=== PATIENT | female | born 1970 | race Caucasian/White ===

== ENCOUNTER 2017-05-20 15:35 | Inpatient (IN) | payer BC ==
[2017-05-20] MEDS ORDERED: NS 1,000 ML IV ONE (17:57)
[2017-05-20] MEDS ORDERED: PANTOPRAZOLE SODIUM 40 MG in NS 100 ML IV ONE (17:57)
--- NOTE | 2017-05-20 17:58 | EDPHY ---
H & P Time Seen by Provider: 05/20/17 17:27 HPI/ROS: CHIEF COMPLAINT: Abdominal pain HISTORY OF PRESENT ILLNESS: This 46-year-old woman has a history of chronic pancreatitis with previous abdominal surgeries. She presents today with 3 months of low level abdominal pain worse for last week and then definitely worse for the last 2 days. Pain is located in her epigastrium and radiates to her back. It is worse at night and is about a 3/10 with water and a 5/10 with Gatorade and a 7/10 with broth over the last 2 days. So no oral intake today at all. Of note she had a history of a single black stool that was 2 months ago. She has a little bit of urinary frequency but no dysuria or hematuria. She has lost weight since 2013 about 10 oz. She did have a glucose that was high 4 days ago but she thinks it was due a incorrect battery in her glucometer REVIEW OF SYSTEMS: Eye: no change in vision ENT: no sore throat Cardiac: no chest pain or syncope Pulmonary: no cough or SOB Abdomen: HPI, no diarrhea Musculoskeletal: no back pain Skin: no rash Neuro: no headache Constitutional: [place] hot today but documented fever. : HPI A comprehensive 10 point review of systems is otherwise negative aside from elements mentioned in the history of present illness. PAST MEDICAL HISTORY: Includes chronic pancreatitis with cholecystectomy and multiple abdominal surgeries including hepatic jejunostomy and can of the pancreatic duct to her small intestine Social history: Nonsmoker. No alcohol for the past 7 years General Appearance: Alert and conversant, cooperative. Eyes: No scleral icterus. ENT, Mouth: Dry oral mucous membranes. Respiratory: Normal respiratory effort, breath sounds equal, lungs are clear to auscultation. Cardiovascular: Regular rate and rhythm. Gastrointestinal: Mild epigastric and right upper quadrant tenderness without rebound or guarding. Neurological: Alert and oriented x3. Normally conversant. Face symmetric, normal movement and sensation in all extremities. Skin: Warm and dry, no rashes. Musculoskeletal: No peripheral edema and no joint swelling. Psychiatric: Not agitated. Emergency Department course/MDM: Normal saline hydration 2 L. admission to hospitalist service with GI consult. Protonix 40 mg IV. Esme 1821, will consult. Clinically unlikely to have acute emergent surgical condition in the emergency department, or infection such as cholangitis. May need further imaging. Smoking Status: Former smoker Constitutional: Initial Vital Signs Temperature (C) 37.2 C 05/20/17 15:47 Heart Rate 86 05/20/17 15:47 Respiratory Rate 18 05/20/17 15:47 Blood Pressure 129/86 H 05/20/17 15:47 O2 Sat (%) 98 05/20/17 15:47 O2 Delivery Mode Room Air Allergies/Adverse Reactions: bupropion HCl [From Wellbutrin] Allergy (Verified 01/10/16 16:48) Home Medications: Medication Instructions Recorded Lipase/Protease/Amylase [Creon 24 1 - 3 cap PO TIDMEAL 12/23/15 (*)] Ketamine 3 sprays EACHNARE HS PRN 05/20/17 ALPRAZOLAM [ALPRAZOLAM] 0.5 mg PO HS PRN 05/20/17 Dextroamphetamine/Amphetamine 20 mg PO BID 05/20/17 [Adderall 20 mg Tablet] Omeprazole [Prilosec 20 mg] 20 mg PO BID 05/20/17 Medical Decision Making Differential Diagnosis: Differential considered including but not limited to common duct stone, pancreatitis, bowel obstruction, ulcer disease or reflux. Consult/Admit Bed Type: [place] [id number] - Data Points Laboratory Results: Laboratory Results 05/20/17 17:25 05/20/17 17:25 05/20/17 05/20/17 05/20/17 17:25 17:25 17:25 WBC 5.11 10^3/uL 10^3/uL (3.80-9.50) RBC 4.29 10^6/uL 10^6/uL (4.18-5.33) Hgb 12.8 g/dL g/dL (12.6-16.3) Hct 38.9 % % (38.0-47.0) MCV 90.7 fL fL (81.5-99.8) MCH 29.8 pg pg (27.9-34.1) MCHC 32.9 g/dL g/dL (32.4-36.7) RDW 12.3 % % (11.5-15.2) Plt Count 357 10^3/uL 10^3/uL (150-400) MPV 9.8 fL fL (8.7-11.7) Neut % (Auto) 57.1 % % (39.3-74.2) Lymph % (Auto) 27.2 % % (15.0-45.0) [place] % (Auto) 8.6 % % (4.5-13.0) Eos % (Auto) 5.9 % % (0.6-7.6) Baso % (Auto) 1.0 % % (0.3-1.7) Nucleat RBC Rel Count 0.0 % % (0.0-0.2) Absolute Neuts (auto) 2.92 10^3/uL 10^3/uL (1.70-6.50) Absolute Lymphs (auto) 1.39 10^3/uL 10^3/uL (1.00-3.00) Absolute Monos (auto) 0.44 10^3/uL 10^3/uL (0.30-0.80) Absolute Eos (auto) 0.30 10^3/uL 10^3/uL (0.03-0.40) Absolute Basos (auto) 0.05 10^3/uL 10^3/uL (0.02-0.10) Absolute Nucleated RBC 0.00 10^3/uL 10^3/uL (0-0.01) Immature Gran % 0.2 % % (0.0-1.1) Immature Gran # 0.01 10^3/uL 10^3/uL (0.00-0.10) Sodium 139 mEq/L mEq/L (134-144) Potassium 3.6 mEq/L mEq/L (3.5-5.2) Chloride 97 mEq/L mEq/L (97-110) Carbon Dioxide 26 mEq/l mEq/l (22-31) Anion Gap 16 mEq/L mEq/L (8-16) BUN 9 mg/dL mg/dL (7-23) Creatinine 0.7 mg/dL mg/dL (0.6-1.0) Estimated GFR > 60 Glucose 96 mg/dL mg/dL (70-100) Calcium 9.8 mg/dL mg/dL (8.5-10.4) Total Bilirubin 1.2 mg/dL mg/dL (0.1-1.4) Conjugated Bilirubin 0.4 mg/dL mg/dL (0.0-0.5) Unconjugated Bilirubin 0.8 mg/dL mg/dL (0.0-1.1) AST 179 IU/L H IU/L (14-46) ALT 353 IU/L H IU/L (9-52) Alkaline Phosphatase 171 IU/L H IU/L (38-126) Total Protein 7.7 g/dL g/dL (6.3-8.2) Albumin 4.7 g/dL g/dL (3.5-5.0) Lipase 13 IU/L L IU/L (23-300) Beta HCG, Qual NEGATIVE Medications Given: Alprazolam (Xanax) 0.5 mg PO HS PRN PRN Reason: Anxiety Stop: 11/16/17 20:05 Last Admin: 05/20/17 20:43 Dose: 0.5 mg Hydromorphone HCl (Dilaudid) 0.2 - 0.4 mg IVP Q4HRS PRN PRN Reason: Pain, Severe Unable to Take PO Stop: 05/30/17 19:09 Last Admin: 05/20/17 20:40 Dose: 0.4 mg Dextrose/Sodium Chloride (D5w 1/2 Ns) 1,000 mls @ 125 mls/hr IV CONT TRUNG Stop: 11/16/17 19:14 Last Admin: 05/20/17 19:59 Dose: 1,000 mls Pantoprazole Sodium (Protonix) 40 mg PO BID TRUNG Stop: 11/16/17 20:59 Last Admin: 05/20/17 20:43 Dose: 40 mg Discontinued Medications Sodium Chloride (Ns) 1,000 mls @ 0 mls/hr IV EDNOW ONE; Wide Open PRN Reason: Protocol Stop: 05/20/17 17:58 Last Admin: 05/20/17 18:34 Dose: 1,000 mls Pantoprazole Sodium 40 mg/ (Sodium Chloride) 100 mls @ 200 mls/hr IV EDNOW ONE Stop: 05/20/17 18:26 Last Admin: 05/20/17 18:34 Dose: 100 mls Departure - Departure Disposition: [facility] Inpatient Acute Clinical Impression: Abdominal pain Condition: Good
[2017-05-20 18:06] LABS: % IMMATURE GRANULYOCYTES 0.2 % (0.0-1.1); ABSOLUTE IMMATURE GRANULOCYTES 0.01 10^3/uL (0.00-0.10); ADD DIFF? NO; ADD MORPH? NO; ADD SCAN? NO; ATYPICAL LYMPHOCYTE FLAG 20 (0-99); FRAGMENT RBC FLAG 0 (0-99); HEMATOCRIT 38.9 % (38.0-47.0); HEMOGLOBIN 12.8 g/dL (12.6-16.3); LEFT SHIFT FLG 0 (0-99); LIPEMIA HEMOLYSIS FLAG 80 (0-99); MEAN CELL HEMOGLOBIN 29.8 pg (27.9-34.1); MEAN CELL HEMOGLOBIN CONCENTR. 32.9 g/dL (32.4-36.7); MEAN CELL VOLUME 90.7 fL (81.5-99.8); MEAN PLATELET VOLUME 9.8 fL (8.7-11.7); PLATELET CLUMPS FLAG 10 (0-99); PLATELET COUNT 357 10^3/uL (150-400); RED BLOOD CELL COUNT 4.29 10^6/uL (4.18-5.33); RED CELL DISTRIBUTION WIDTH 12.3 % (11.5-15.2)
[2017-05-20 18:10] LABS: ALANINE AMINOTRANSFERASE 353 IU/L (9-52); ALBUMIN 4.7 g/dL (3.5-5.0); ALKALINE PHOSPHATASE 171 IU/L (38-126); ANION GAP 16 mEq/L (8-16); ASPARTATE AMINOTRANSFERASE 179 IU/L (14-46); BILIRUBIN,TOTAL 1.2 mg/dL (0.1-1.4); BILIRUBIN-CONJUGATED 0.4 mg/dL (0.0-0.5); BILIRUBIN-UNCONJUGATED 0.8 mg/dL (0.0-1.1); CALCIUM 9.8 mg/dL (8.5-10.4); CARBON DIOXIDE 26 mEq/l (22-31); CHLORIDE 97 mEq/L (97-110); CREATININE 0.7 mg/dL (0.6-1.0); GLOMERULAR FILTRATION RATE > 60; GLUCOSE 96 mg/dL (70-100); POTASSIUM 3.6 mEq/L (3.5-5.2); SODIUM 139 mEq/L (134-144); TOTAL PROTEIN 7.7 g/dL (6.3-8.2)
[2017-05-20] MEDS ORDERED: ACETAMINOPHEN 325 MG TAB PO PRN (19:10)
[2017-05-20] MEDS ORDERED: ONDANSETRON DISINTEGRATING 4 MG TAB PO PRN (19:10)
[2017-05-20] MEDS ORDERED: PROMETHAZINE HCL 25 MG/ML INJ IVP PRN (19:10)
--- NOTE | 2017-05-20 19:53 | GHP ---
[f rep st] HISTORY AND PHYSICAL DATE OF ADMISSION: 05/20/2017 HISTORY OF PRESENT ILLNESS: The patient is a pleasant 46-year-old female, history of chronic pancre atitis with a complex history. It sounds like she has had pancreatitis systems or biliary obstructi on, and she had initially a surgical procedure in [facility] to attach the pancreatic duct into the duodenum, followed by a hepatojejunostomy. She had multiple admissions a number of years ago for r ecurrent pancreatitis that is not felt to be alcohol induced. She has done well from a chronic pain standpoint in the sense that she has weaned herself off of chronic narcotics. She takes occasional ly nasal ketamine and meditation for management of her pain. Over the last couple of weeks, she not es that her pain has gotten worse, especially postprandial. It has gotten even worse in the last co uple of days to the point where she is having a hard time drinking water. It is worse at night. It radiates to her back. She is having some nausea, but no vomiting. No melena. No bright red blood per rectum. She did have an episode of melena 2 months ago that resolved. She has lost a little b it of weight. The patient had an episode of what sounds like steatorrhea earlier this week. REVIEW OF SYSTEMS: Complete 10-point review of systems conducted, negative except as noted in the H PI. PAST MEDICAL HISTORY: Chronic pancreatitis. She also has an apparent history of diabetes as result of her chronic pancreatitis. ALLERGIES: Bupropion. MEDICATIONS: Ketamine nasal spray, [id number], and Xanax. SOCIAL HISTORY: She used to vapor tobacco, but has quit that. No alcohol. Recently in . FAMILY HISTORY: Notable for brother with an episode of pancreatitis and has celiac disease. PHYSICAL EXAM: VITAL SIGNS: Temp 37.2, blood pressure 129/86, pulse 86, breathing 18 times a minut e, 98% on room air. GENERAL: No acute distress, thin. HEENT: Sclerae anicteric. Oropharynx jasiel r. Mucous membranes moist. NECK: Supple without lymphadenopathy or JVD. LUNGS: Clear to auscult ation bilaterally. HEART: S1, S2. ABDOMEN: Soft, nontender, nondistended. LOWER EXTREMITIES: W ithout edema. Calves nontender. SKIN: Without rash. NEUROLOGIC: Exam is nonfocal. LABS: White count 5, hematocrit 38, platelets are , sodium 139, potassium 3.6, chloride 9 7, bicarb 26, BUN 9, creatinine 0.7, bilirubin is 1.2. In the past she has been 0.8. AST is 179, A LT 253, alkaline phosphatase is 171, these are all greater than her baseline. Lipase is 13. Beta H CG is pending. I have discussed the case Dr. Christian Chadwick. ASSESSMENT/PLAN: This is a 46-year-old female with a complex past medical history, here with what a ppears to be pancreatitis. 1. Pancreatitis. I suspect the patient has obstruction of her surgical anatomy given her obstructi ve LFTs. She is loathe to get another CAT scan. So, I have ordered an ultrasound at this point in time. It may be followed by MRCP. GI will see her. I will maintain her n.p.o. IV fluids, IV pain medications, and IV antiemetics. 2. Diabetes. The patient has a normal blood sugar, is not on any medications. We will follow. 3. Episode of melena. She is not anemic nor microcytic here. We will follow. 4. Prophylaxis. Pharmacologic prophylaxis indicated, we will start. DISPOSITION: Inpatient status. /[id number]/MODL
[2017-05-20] MEDS: D5W 1/2 NS 1,000 ML IV SCH (19:59)
[2017-05-20] MEDS ORDERED: ALPRAZolam 0.25 MG TAB PO PRN (20:06)
[2017-05-20] MEDS: HYDROmorphONE/DILAUDID 1 MG/ML INJ IVP PRN (20:40)
[2017-05-20] MEDS: PANTOPRAZOLE SODIUM 40 MG TAB PO SCH (20:43)
[2017-05-21] MEDS ORDERED: HYDROmorphONE/DILAUDID 2 MG TAB PO PRN (05:39)
[2017-05-21 05:42] LABS: % IMMATURE GRANULYOCYTES 0.4 % (0.0-1.1); ABSOLUTE IMMATURE GRANULOCYTES 0.02 10^3/uL (0.00-0.10); ADD DIFF? NO; ADD MORPH? NO; ADD SCAN? NO; ATYPICAL LYMPHOCYTE FLAG 20 (0-99); FRAGMENT RBC FLAG 0 (0-99); HEMATOCRIT 34.5 % (38.0-47.0); HEMOGLOBIN 11.1 g/dL (12.6-16.3); LEFT SHIFT FLG 0 (0-99); LIPEMIA HEMOLYSIS FLAG 80 (0-99); MEAN CELL HEMOGLOBIN 29.6 pg (27.9-34.1); MEAN CELL HEMOGLOBIN CONCENTR. 32.2 g/dL (32.4-36.7); MEAN PLATELET VOLUME 9.5 fL (8.7-11.7); PLATELET CLUMPS FLAG 10 (0-99); PLATELET COUNT 289 10^3/uL (150-400); RED BLOOD CELL COUNT 3.75 10^6/uL (4.18-5.33); RED CELL DISTRIBUTION WIDTH 12.3 % (11.5-15.2)
[2017-05-21 05:46] LABS: INR 1.18 (0.83-1.16)
[2017-05-21 05:47] LABS: APTT 28.2 SEC (23.0-38.0)
[2017-05-21 05:58] LABS: ALANINE AMINOTRANSFERASE 213 IU/L (9-52); ALBUMIN 3.3 g/dL (3.5-5.0); ALKALINE PHOSPHATASE 112 IU/L (38-126); ANION GAP 8 mEq/L (8-16); ASPARTATE AMINOTRANSFERASE 77 IU/L (14-46); BILIRUBIN,TOTAL 0.7 mg/dL (0.1-1.4); CALCIUM 8.8 mg/dL (8.5-10.4); CARBON DIOXIDE 26 mEq/l (22-31); CHLORIDE 102 mEq/L (97-110); CREATININE 0.6 mg/dL (0.6-1.0); GLOMERULAR FILTRATION RATE > 60; GLUCOSE 129 mg/dL (70-100); POTASSIUM 4.1 mEq/L (3.5-5.2); SODIUM 136 mEq/L (134-144); TOTAL PROTEIN 5.9 g/dL (6.3-8.2)
[2017-05-21] MEDS ORDERED: HYDROmorphONE/DILAUDID 1 MG/ML INJ IVP ONE (06:30)
[2017-05-21] MEDS: ALPRAZolam 0.25 MG TAB PO PRN ×2 (07:15→15:18)
[2017-05-21] MEDS: HYDROmorphONE/DILAUDID 1 MG/ML INJ IVP PRN (08:29)
[2017-05-21] MEDS: ENOXAPARIN 40 MG/0.4 ML SYR SC SCH (08:32)
[2017-05-21] MEDS: PANTOPRAZOLE SODIUM 40 MG TAB PO SCH ×2 (08:32→20:18)
[2017-05-21] MEDS: ADDERALL 20 MG TAB PO SCH ×2 (08:34→14:55)
[2017-05-21] MEDS: CREON 24 CAP PO SCH ×3 (08:35→19:08)
--- NOTE | 2017-05-21 10:24 | HOSPPROG ---
Hospitalist Progress Note Assessment/Plan: Patient is a 46-year-old female with a history of chronic pancreatitis. She has had a procedure to her pancreatic duct. Over the last few weeks her pain has gotten worse. Today is my 1st encounter with the patient. Chart reviewed. 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 Continue treatment with IV hydration and Dilaudid TRANSCRIBING MACHINE OPERATOR will await further input from Gastroenterology. Appreciate their involvement Subjective: the patient is tearful and says the pain is severe Objective: Vital Signs Temp Pulse Resp BP Pulse Ox 36.7 C 66 14 88/62 L 93 05/21/17 07:50 05/21/17 07:50 05/21/17 07:50 05/21/17 07:50 05/21/17 07:50 Laboratory Results 05/21/17 05:29 05/21/17 05:29 05/20/17 05/21/17 05/22/17 05:59 05:59 05:59 Intake Total 2375 Balance 2375 PT 15.0 SEC (12.0-15.0) 05/21/17 05:29 INR 1.18 (0.83-1.16) H 05/21/17 05:29 - Physical Exam Constitutional: other ( thin) Eyes: PERRL Ears, Nose, Mouth, Throat: hearing normal Cardiovascular: regular rate and rhythym Respiratory: no respiratory distress Gastrointestinal: normoactive bowel sounds, tenderness ( in the right upper quadrant and epigastric area) Skin: warm Musculoskeletal: full muscle strength, no muscle tenderness, no joint effusions Psychiatric: interacting appropriately, anxious ICD10 Worksheet Patient Problems: Problems Problem Status Onset Abdominal pain Acute Abdominal pain Active Pancreatitis Active Bipolar 1 disorder Acute
[2017-05-21] MEDS ORDERED: NALOXONE HCL 0.4 MG/ML INJ IVP PRN (10:30)
[2017-05-21] MEDS: HYDROmorphONE/DILAUDID 6 MG/30 ML PCA IV PRN ×2 (10:54→22:39)
--- NOTE | 2017-05-21 11:41 | GCON ---
[f rep st] CONSULTATION GASTROENTEROLOGY CONSULTATION REFERRING PHYSICIAN: Jerman Mendez MD REASON FOR CONSULTATION: Abdominal pain. CHIEF COMPLAINT: Abdominal pain. HISTORY OF PRESENT ILLNESS: Briefly, the patient is a pleasant 46-year-old female with a complicated pancreatobiliary history. Approximately 5 years ago, she underwent multiple abdominal surgeries to resolve complications of acute pancreatitis. She has ultimately had to undergo hepaticojejunostomy. She believes that she has had multiple admissions over the years for recurrent pancreatitis. She mckinley d been doing well since approximately 2012. She began having increasing abdominal pain over the last 3 months. This was intermittent, with periods of time without pain, and then over the last 1 week, she reports gradually worsening daily pain. Pains are clearly made worse with eating, even small juan unts of liquids. Given the worsening symptoms, more consistent nature of the symptoms, she presented to the emergency room for evaluation. She reports no fevers chills or sweats. She has had no jaund ice. She reports no nausea or vomiting. She has not had any episodes of hematemesis or hematochezia . She reports her bowel movements remain normal. Her weight has been somewhat irregular. Her typic al weight is close to 100 pounds. She reports that she was down to approximately 85 pounds earlier t his year, she began eating a higher calorie diet, and has increased her weight back up to 100 pounds, but over the last 4-6 weeks, she believes she has lost approximately 5-10 pounds, and is currently w eighing closer to 90 pounds. ALLERGIES: Bupropion. MEDICATIONS: Outpatient medicines include ketamine nasal spray, pancreatic enzyme replacement, and X anax. PAST MEDICAL HISTORY: Includes chronic pancreatitis with mild diabetes as a consequence. PAST SURGICAL HISTORY: Includes multiple complicated pancreaticobiliary surgeries. FAMILY HISTORY: Notable for a brother who has had an episode of pancreatitis and a brother who has c eliac disease. REVIEW OF SYSTEMS: A complete 10-point review was undertaken with the patient and is negative, excep t for the pertinent positives and negatives detailed in the history of present illness. PHYSICAL EXAM: GENERAL: This is a thin, well-appearing female in no apparent distress. HEENT: Her pupils are equal, round, reactive to light and accommodation. Her sclerae are nonicteric. Orophary nx is clear. NECK: Supple without lymphadenopathy. HEART: Regular without murmur. ABDOMEN: Soft , but tender throughout. She has normoactive bowel sounds. There is no rebound or guarding. EXTREM ITIES: Free of cyanosis, clubbing, edema. NEUROLOGIC: Grossly nonfocal. SKIN: Warm and dry. PSY CHIATRIC: Normal mood and affect. LABORATORY DATA: Laboratory testing shows a white count of 5.46, hemoglobin of 11.1, hematocrit of 3 4.5, platelet count of 289. INR of 1.18. Sodium of 136, potassium of 4.1, chloride of 102, bicarb o f 26, BUN of 6, creatinine of 0.6. AST of 77, ALT of 213, alkaline phosphatase of 112, total protein of 5.9, albumin of 3.3. Lipase of 13. Right upper quadrant ultrasound reveals no evidence of biliary obstruction. Slight enlargement of sp lenic cyst. IMPRESSION: The patient has been admitted to the hospital with worsening abdominal pain. Per her hi story, her symptoms are reminiscent of prior episodes of pancreatitis. Her laboratory testing reveal s abnormal liver tests, concerning for hepatitis or possible biliary obstruction. Abdominal ultrasou nd was reassuring, but may be limited given her postsurgical anatomy. RECOMMENDATIONS: At this time, I recommend additional investigation of her biliary tree with MRCP. Pending the results of that, we can consider further workup and management. Meanwhile she should rem ain on a liquid diet, with IV analgesics. It may be that her symptoms are a flare of chronic pancrea titis and will resolve with supportive care. /[id number]/MODL
[2017-05-21] MEDS: D5W 1/2 NS 1,000 ML IV SCH ×2 (12:14→22:40)
[2017-05-21] MEDS ORDERED: GADOBUTROL 10 ML VIAL IVP ONE (15:13)
[2017-05-21] MEDS: ONDANSETRON 4 MG/2 ML VIAL IVP PRN (20:25)
[2017-05-22] MEDS ORDERED: diphenhydrAMINE 25 MG CAP PO PRN (01:38)
[2017-05-22] MEDS: ALPRAZolam 0.25 MG TAB PO PRN ×2 (01:45→17:37)
[2017-05-22 06:34] LABS: ALANINE AMINOTRANSFERASE 145 IU/L (9-52); ALKALINE PHOSPHATASE 91 IU/L (38-126); ANION GAP 7 mEq/L (8-16); ASPARTATE AMINOTRANSFERASE 37 IU/L (14-46); BILIRUBIN,TOTAL 0.5 mg/dL (0.1-1.4); CALCIUM 8.8 mg/dL (8.5-10.4); CARBON DIOXIDE 27 mEq/l (22-31); CHLORIDE 104 mEq/L (97-110); CREATININE 0.7 mg/dL (0.6-1.0); GLOMERULAR FILTRATION RATE > 60; GLUCOSE 128 mg/dL (70-100); POTASSIUM 3.9 mEq/L (3.5-5.2); SODIUM 138 mEq/L (134-144); TOTAL PROTEIN 5.5 g/dL (6.3-8.2)
[2017-05-22] MEDS: ADDERALL 20 MG TAB PO SCH ×2 (08:45→15:48)
[2017-05-22] MEDS: CREON 24 CAP PO SCH ×3 (08:45→16:45)
[2017-05-22] MEDS: PANTOPRAZOLE SODIUM 40 MG TAB PO SCH ×2 (08:45→21:43)
[2017-05-22] MEDS: ENOXAPARIN 40 MG/0.4 ML SYR SC SCH (08:46)
--- NOTE | 2017-05-22 08:51 | HOSPPROG ---
Hospitalist Progress Note Assessment/Plan: Patient is a 46-year-old female with a history of chronic pancreatitis. She has had a procedure to her pancreatic duct. Over the last few weeks her pain has gotten worse. * abdominal pain her symptoms are similar to pancreatitis when she has had this in the past lipase is stable MRCP does not show clear-cut etiology of her abdominal pain has elevated liver test * possible pancreatitis/acute on chronic Possibly secondary to obstruction right upper quadrant ultrasound reveals no evidence of biliary obstruction, enlargement of splenic cyst Reviewed her care with the dietitian who recommended increasing her oral pancreatic enzymes * underweight with a BMI 16.7 * diabetes glucose is stable at 128 this morning * episode of melena * plan. 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 Tolerating clear liquids. Subjective: Jenny is feeling better today and getting more hungry. Objective: Vital Signs Temp Pulse Resp BP Pulse Ox 36.5 C 69 18 84/52 L 100 05/22/17 08:00 05/22/17 08:00 05/22/17 08:00 05/22/17 08:00 05/22/17 08:00 Laboratory Results 05/21/17 05:29 05/22/17 06:06 05/21/17 05/22/17 05/23/17 05:59 05:59 05:59 Intake Total 2375 300 Balance 2375 300 PT 15.0 SEC (12.0-15.0) 05/21/17 05:29 INR 1.18 (0.83-1.16) H 05/21/17 05:29 - Physical Exam Constitutional: other (thin) Eyes: PERRL Ears, Nose, Mouth, Throat: hearing normal Cardiovascular: regular rate and rhythym Respiratory: no respiratory distress Gastrointestinal: normoactive bowel sounds, soft, non-tender abdomen Skin: warm Musculoskeletal: full muscle strength Neurologic: AAOx3 Psychiatric: interacting appropriately ICD10 Worksheet Patient Problems: Problems Problem Status Onset Abdominal pain Acute Abdominal pain Active Pancreatitis Active Bipolar 1 disorder Acute
--- NOTE | 2017-05-22 11:44 | SOAPPROG ---
SOAP Progress Note Assessment/Plan: Assessment/Pain: 1. Pain - suspect acute on chronic pancreatitis - MRCP w/o clue suggesting bile duct obstruction - LFTs improving - continue supportive care with IVF, analgesics, and antiemetics - can consider dc home once pain under control and tolerating some po - continue panc enzyme replacement - could consider outpt EUS to eval pancreatic bed for stone, panc duct stricture, etc 05/22/17 11:41 Subjective: CC: f/u abdominal pain S: feeling a bit better less pain this AM tolerated liquid meal without problem this AM no nausea no vomiting no fever passing gas, but no BM Objective: Vital Signs Temp Pulse Resp BP Pulse Ox 36.6 C 76 20 106/72 94 05/22/17 09:28 05/22/17 11:19 05/22/17 11:19 05/22/17 11:19 05/22/17 11:19 Laboratory Results 05/21/17 05:29 05/22/17 06:06 05/21/17 05/22/17 05/23/17 05:59 05:59 05:59 Intake Total 2375 300 Balance 2375 300 PT 15.0 SEC (12.0-15.0) 05/21/17 05:29 INR 1.18 (0.83-1.16) H 05/21/17 05:29 Laboratory Tests 05/20/17 05/21/17 05/21/17 17:25 05:29 05:29 WBC 5.46 Hgb 11.1 L Hct 34.5 L Plt Count 289 D Total Bilirubin 1.2 0.7 AST 179 H 77 H ALT 353 H 213 H Alkaline Phosphatase 171 H 112 Total Protein 7.7 5.9 L D Albumin 4.7 3.3 L D Lipase 13 L 05/22/17 06:06 WBC Hgb Hct Plt Count Total Bilirubin 0.5 AST 37 ALT 145 H Alkaline Phosphatase 91 Total Protein 5.5 L Albumin 3.0 L Lipase Physical Exam - Physical Exam General Appearance: alert, no apparent distress EENT: PERRL/EOMI, No scleral icterus (R), No scleral icterus (L) Respiratory: chest non-tender, lungs clear Cardiac/Chest: normal peripheral pulses, regular rate, rhythm Abdomen: normal bowel sounds, soft, No non-tender, No distended, No guarding, No rebound Skin: normal color Neuro/Psych: no motor/sensory deficits ICD10 Worksheet Patient Problems: Problems Problem Status Onset Abdominal pain Acute Abdominal pain Active Pancreatitis Active Bipolar 1 disorder Acute
[2017-05-22] MEDS: HYDROmorphONE/DILAUDID 6 MG/30 ML PCA IV PRN ×2 (12:26→23:18)
[2017-05-22] MEDS: D5W 1/2 NS 1,000 ML IV SCH (15:34)
[2017-05-22] MEDS: oxyCODONE IR 5 MG TAB PO PRN ×2 (18:21→22:31)
[2017-05-22] MEDS ORDERED: NALOXONE HCL 0.4 MG/ML INJ IVP PRN (22:49)
[2017-05-23] MEDS ORDERED: SUMAtriptan 50 MG TAB PO ONE (00:07)
[2017-05-23] MEDS: oxyCODONE IR 5 MG TAB PO PRN (04:57)
[2017-05-23] MEDS: ALPRAZolam 0.25 MG TAB PO PRN (05:04)
[2017-05-23 05:29] LABS: ALANINE AMINOTRANSFERASE 133 IU/L (9-52); ALBUMIN 3.8 g/dL (3.5-5.0); ALKALINE PHOSPHATASE 93 IU/L (38-126); ANION GAP 11 mEq/L (8-16); ASPARTATE AMINOTRANSFERASE 31 IU/L (14-46); BILIRUBIN,TOTAL 0.5 mg/dL (0.1-1.4); CALCIUM 9.3 mg/dL (8.5-10.4); CARBON DIOXIDE 25 mEq/l (22-31); CHLORIDE 106 mEq/L (97-110); CREATININE 0.6 mg/dL (0.6-1.0); GLOMERULAR FILTRATION RATE > 60; GLUCOSE 93 mg/dL (70-100); POTASSIUM 4.2 mEq/L (3.5-5.2); SODIUM 142 mEq/L (134-144); TOTAL PROTEIN 6.3 g/dL (6.3-8.2)
[2017-05-23] MEDS ORDERED: SUMAtriptan 25 MG TAB PO ONE (06:57)
[2017-05-23] MEDS: CREON 24 CAP PO SCH ×3 (08:22→18:06)
[2017-05-23] MEDS: ADDERALL 20 MG TAB PO SCH ×3 (08:22→16:56)
[2017-05-23] MEDS: ENOXAPARIN 40 MG/0.4 ML SYR SC SCH (09:12)
[2017-05-23] MEDS: PANTOPRAZOLE SODIUM 40 MG TAB PO SCH ×2 (09:12→20:09)
[2017-05-23] MEDS: HYDROmorphONE/DILAUDID 6 MG/30 ML PCA IV PRN ×2 (10:08→16:55)
--- NOTE | 2017-05-23 10:18 | SOAPPROG ---
SOAP Progress Note Assessment/Plan: Assessment/Pain: 1. Pain - worsened pain yesterday - suspect acute on chronic pancreatitis - may be some component for a chronic pain syndrome? - MRCP w/o bile duct obstruction - LFTs improving - continue supportive care with IVF, analgesics, and antiemetics - can consider dc home once pain under control and tolerating some po - given worsening abd pain through day yesterday, recommend pt return to npo status (sips/chips/meds ok) - Dr. Valladares to assume rounds/service 05/23/17 at 1700, call with questions Subjective: CC: f/u abdominal pain S: worsened pain overnight back onto [employer] prn hoping to get nasal ketamine compounded and delivered to pharmacy no fever no vomiting no cough/congestion Objective: Vital Signs Temp Pulse Resp BP Pulse Ox 36.5 C 52 L 16 118/59 L 99 05/23/17 10:00 05/23/17 10:00 05/23/17 10:00 05/23/17 10:00 05/23/17 10:00 Laboratory Results 05/21/17 05:29 05/23/17 04:58 05/22/17 05/23/17 05/24/17 05:59 05:59 05:59 Intake Total 300 450 Balance 300 450 PT 15.0 SEC (12.0-15.0) 05/21/17 05:29 INR 1.18 (0.83-1.16) H 05/21/17 05:29 Physical Exam - Physical Exam General Appearance: WD/WN, alert EENT: PERRL/EOMI Neck: non-tender Respiratory: chest non-tender, lungs clear Cardiac/Chest: normal peripheral pulses Abdomen: normal bowel sounds Skin: normal color Lymphatic: no adenopathy Extremities: normal range of motion Neuro/Psych: no motor/sensory deficits ICD10 Worksheet Patient Problems: Problems Problem Status Onset Abdominal pain Acute Abdominal pain Active Pancreatitis Active Bipolar 1 disorder Acute
[2017-05-23] MEDS ORDERED: SUMAtriptan 50 MG TAB PO PRN (10:51)
[2017-05-23] MEDS: D5W 1/2 NS 1,000 ML IV SCH ×2 (11:55→22:01)
--- NOTE | 2017-05-23 13:30 | HOSPPROG ---
Hospitalist Progress Note Assessment/Plan: Patient is a 46-year-old female with a history of chronic pancreatitis. She has had a procedure to her pancreatic duct in the past. Over the last few weeks her pain has gotten worse. First encounter, chart reviewed. D/W Dr Victoria. * abdominal pain her symptoms are similar to pancreatitis when she has had this in the past lipase is stable MRCP does not show clear-cut etiology of her abdominal pain has elevated liver test cont NPO/DATA ENTRY MANAGER * possible pancreatitis/acute on chronic Possibly secondary to obstruction right upper quadrant ultrasound reveals no evidence of biliary obstruction, enlargement of splenic cyst * underweight with a BMI 16.7 *Migraine cont imitrex * diabetes glucose is stable at 128 this morning * episode of melena * plan. NPO, follow pain. Cont DATA ENTRY MANAGER/IVF Subjective: Still having abdominal pain. C/O migraine. Objective: Vital Signs Temp Pulse Resp BP Pulse Ox 36.2 C 77 16 121/71 H 92 05/23/17 11:19 05/23/17 11:19 05/23/17 11:19 05/23/17 11:19 05/23/17 11:19 Laboratory Results 05/21/17 05:29 05/23/17 04:58 05/22/17 05/23/17 05/24/17 05:59 05:59 05:59 Intake Total 300 450 Balance 300 450 PT 15.0 SEC (12.0-15.0) 05/21/17 05:29 INR 1.18 (0.83-1.16) H 05/21/17 05:29 - Physical Exam Constitutional: no apparent distress, chronically ill appearing, uncomfortable Eyes: PERRL, anicteric sclera, EOMI Ears, Nose, Mouth, Throat: moist mucous membranes, hearing normal, ears appear normal Cardiovascular: regular rate and rhythym, No JVD, No edema Respiratory: no respiratory distress, no rales or rhonchi, reduced air movement Gastrointestinal: tenderness, No ascites, No guarding Skin: warm, normal color, No mottled Musculoskeletal: normal joint ROM, no joint effusions, generalized weakness Neurologic: AAOx3 Psychiatric: interacting appropriately, not encephalopathic, thought process linear ICD10 Worksheet Patient Problems: Problems Problem Status Onset Abdominal pain Active Pancreatitis Active Bipolar 1 disorder Acute Abdominal pain Acute
[2017-05-24] MEDS: ALPRAZolam 0.25 MG TAB PO PRN (03:01)
[2017-05-24] MEDS: HYDROmorphONE/DILAUDID 6 MG/30 ML PCA IV PRN ×3 (04:28→19:51)
[2017-05-24] MEDS: D5W 1/2 NS 1,000 ML IV SCH ×2 (06:39→16:34)
[2017-05-24] MEDS: CREON 24 CAP PO SCH (08:58)
[2017-05-24] MEDS: ADDERALL 20 MG TAB PO SCH ×2 (09:00→16:35)
[2017-05-24] MEDS: PANTOPRAZOLE SODIUM 40 MG TAB PO SCH (09:07)
[2017-05-24] MEDS: ENOXAPARIN 40 MG/0.4 ML SYR SC SCH (09:07)
[2017-05-24 12:25] LABS: ALANINE AMINOTRANSFERASE 121 IU/L (9-52); ALBUMIN 4.6 g/dL (3.5-5.0); ALKALINE PHOSPHATASE 125 IU/L (38-126); AMYLASE < 30 IU/L (30-110); ANION GAP 14 mEq/L (8-16); ASPARTATE AMINOTRANSFERASE 28 IU/L (14-46); BILIRUBIN,TOTAL 0.6 mg/dL (0.1-1.4); BILIRUBIN-CONJUGATED 0.2 mg/dL (0.0-0.5); BILIRUBIN-UNCONJUGATED 0.4 mg/dL (0.0-1.1); CALCIUM 9.9 mg/dL (8.5-10.4); CARBON DIOXIDE 28 mEq/l (22-31); CHLORIDE 104 mEq/L (97-110); CREATININE 0.6 mg/dL (0.6-1.0); GLOMERULAR FILTRATION RATE > 60; GLUCOSE 110 mg/dL (70-100); POTASSIUM 4.3 mEq/L (3.5-5.2); SODIUM 146 mEq/L (134-144); TOTAL PROTEIN 7.7 g/dL (6.3-8.2)
--- NOTE | 2017-05-24 12:55 | SOAPPROG ---
SOAP Progress Note Assessment/Plan: Assessment: Patient with chronic abdominal pain with chronic pancreatitis. Patient with normal lipase. LFT's Improved. Imaging without finding of binary ductal dilation. Patient has had extensive problems with pancreatitis from presumed ETOH. She has had pervenous pancreaticojejunostomy (for pancreatic drainage) and hepaticojejunostomy (for biliary obstruction). Very complex history. Patient with complex chronic pancreatitis with chronic pain syndrome. Patient is well know to Dr. Garrison. Plan: 1. Would follow clinically, supportive care 2. Can try ice chips and clear liquids. 3. Resume pancreatic enzyme supplement when taking PO 4. If no improvement could consider checkin EGD to exclude ulcer. If that is normal she might benefit from a re-evaluation at the [facility] or re- evaluation by pain specialist. 05/24/17 12:58 Subjective: CC: Chronic pain with chronic pancreatics. Worsening epigastric pain. Patient reports more problems over the last three months. Reports upper abdominal pain that is searing and radiates straight into her back. Objective: Vital Signs Temp Pulse Resp BP Pulse Ox 36.8 C 87 16 101/72 90 L 05/24/17 10:00 05/24/17 10:00 05/24/17 10:00 05/24/17 10:00 05/24/17 10:00 Laboratory Results 05/21/17 05:29 05/24/17 11:20 05/23/17 05/24/17 05/25/17 05:59 05:59 05:59 Intake Total 450 2064 Balance 450 2064 PT 15.0 SEC (12.0-15.0) 05/21/17 05:29 INR 1.18 (0.83-1.16) H 05/21/17 05:29 Generic Name Dose Route Start Last Admin Trade Name Freq PRN Reason Stop Dose Admin Acetaminophen 650 mg 05/20/17 19:10 Tylenol PO 11/16/17 19:09 Q4HRS PRN Pain, Mild/Fever, Can Take PO Alprazolam 0.5 mg 05/21/17 06:29 05/24/17 03:01 Xanax PO 11/16/17 20:05 0.25 mg BID PRN Administration Anxiety Amphetamine/Dextroamphetamine 20 mg 05/21/17 09:00 05/24/17 09:00 Adderall PO 11/17/17 08:59 Not Given BID@0900,1500 TRUNG Enoxaparin Sodium 40 mg 05/21/17 09:00 05/24/17 09:07 Lovenox SC 11/17/17 08:59 40 mg DAILY TRUNG Administration Hydromorphone HCl 0 mg 05/22/17 22:49 05/24/17 04:28 Dilaudid Manager Electrical IV 06/01/17 22:48 6 mg PRN PRN Administration Pain, Severe Unable to Take PO Protocol Dextrose/Sodium Chloride 1,000 mls @ 100 mls/hr 05/23/17 11:00 05/24/17 06:39 D5w 1/2 Ns IV 11/19/17 10:59 1,000 mls CONT TRUNG Administration Pantoprazole Sodium 40 mg/ 100 mls @ 200 mls/hr 05/24/17 21:00 Sodium Chloride IV 11/20/17 20:59 BID TRUNG Lipase/Amylase/Pancrelipase/Proteas 1 - 3 cap 05/21/17 08:00 05/24/17 08:58 Creon 24 PO 11/17/17 07:59 Not Given TIDMEAL TRUNG Lorazepam 0.5 mg 05/24/17 10:23 Ativan Injection IVP 11/20/17 10:22 Q4HRS PRN Anxiety, Unable to Take PO Miscellaneous Medication 3 sprays 05/24/17 11:51 05/24/17 11:59 Ketamine EACHNARE 11/20/17 11:50 3 sprays TID PRN Administration MODERATE PAIN Morphine Sulfate 1 mg 05/22/17 22:02 05/22/17 22:32 Morphine IVP 06/01/17 22:01 1 mg Q4HRS PRN Administration Pain, Severe Unable to Take PO Naloxone HCl 0 mg 05/22/17 22:49 Narcan IVP 11/18/17 22:48 PRN PRN Respiratory depression Protocol Ondansetron HCl 4 mg 05/20/17 19:10 05/21/17 20:25 Zofran IVP 11/16/17 19:09 4 mg Q4HRS PRN Administration Nausea/Vomiting, Can't Take PO Oxycodone HCl 5 - 10 mg 05/22/17 18:05 05/23/17 04:57 Oxycodone Ir PO 06/01/17 18:04 10 mg Q4HRS PRN Administration Pain, Severe Able to Take PO Promethazine HCl 6.25 - 12.5 mg 05/20/17 19:10 05/23/17 07:27 Phenergan IVP 11/16/17 19:09 6.25 mg Q6HRS PRN Administration Nausea/Vomiting, Use 2nd Discontinued Medications Generic Name Dose Route Start Last Admin Trade Name Freq PRN Reason Stop Dose Admin Alprazolam 0.5 mg 05/20/17 20:06 05/20/17 20:43 Xanax PO 11/16/17 20:05 0.5 mg HS PRN Administration Anxiety Diphenhydramine HCl 50 mg 05/22/17 01:38 Benadryl PO 11/18/17 01:37 HS PRN Sleep/Insomnia Gadobutrol Confirm 05/21/17 15:13 Gadavist 1 Mmol/Ml Administered 05/21/17 15:14 Dose 10 ml IVP .STK-MED ONE Hydromorphone HCl 0.2 - 0.4 mg 05/20/17 19:10 05/21/17 08:29 Dilaudid IVP 05/30/17 19:09 0.4 mg Q4HRS PRN Administration Pain, Severe Unable to Take PO Hydromorphone HCl 2 mg 05/21/17 05:39 05/21/17 05:58 Dilaudid PO 05/31/17 05:38 2 mg Q6H PRN Administration Pain, Severe Able to Take PO Hydromorphone HCl 0.4 mg 05/21/17 06:30 05/21/17 06:35 Dilaudid IVP 05/21/17 06:31 0.4 mg ONCE ONE Administration Hydromorphone HCl 0 mg 05/21/17 10:30 05/22/17 12:26 Dilaudid Manager Electrical IV 05/31/17 10:29 6 mg PRN PRN Administration Pain, Severe Unable to Take PO Protocol Sodium Chloride 1,000 mls @ 0 mls/hr 05/20/17 17:57 05/20/17 18:34 Ns IV 05/20/17 17:58 1,000 mls EDNOW ONE Administration Protocol Wide Open Pantoprazole Sodium 40 mg/ 100 mls @ 200 mls/hr 05/20/17 17:57 05/20/17 18:34 Sodium Chloride IV 05/20/17 18:26 100 mls EDNOW ONE Administration Dextrose/Sodium Chloride 1,000 mls @ 125 mls/hr 05/20/17 19:15 05/22/17 15:34 D5w 1/2 Ns IV 11/16/17 19:14 1,000 mls CONT TRUNG Administration Miscellaneous Medication 3 sprays 05/20/17 20:06 Ketamine EACHNARE HS PRN DEPRESSION/PAIN Naloxone HCl 0 mg 05/21/17 10:30 Narcan IVP 11/17/17 10:29 PRN PRN Respiratory depression Protocol Ondansetron HCl 4 mg 05/20/17 19:10 05/24/17 04:29 Zofran Odt PO 11/16/17 19:09 4 mg Q4HRS PRN Administration Nausea/Vomiting, Use 1st Pantoprazole Sodium 40 mg 05/20/17 21:00 05/24/17 09:07 Protonix PO 11/16/17 20:59 40 mg BID TRUNG Administration Sumatriptan Succinate 50 mg 05/23/17 00:07 05/23/17 00:14 Imitrex PO 05/23/17 00:08 50 mg ONCE ONE Administration Sumatriptan Succinate 25 mg 05/23/17 06:57 05/23/17 08:53 Imitrex PO 05/23/17 06:58 25 mg ONCE ONE Administration Sumatriptan Succinate 50 mg 05/23/17 10:51 Imitrex PO 11/19/17 10:50 BID PRN Headache, Migrane Physical Exam - Physical Exam General Appearance: alert, no apparent distress Neck: non-tender Respiratory: lungs clear Cardiac/Chest: regular rate, rhythm Abdomen: normal bowel sounds, soft, other (tender to palpation) Skin: normal color, warm/dry Neuro/Psych: alert, normal mood/affect, oriented x 3 ICD10 Worksheet Patient Problems: Problems Problem Status Onset Abdominal pain Acute Abdominal pain Active Pancreatitis Active Bipolar 1 disorder Acute
[2017-05-24] MEDS ORDERED: HYDROmorphONE/DILAUDID 1 MG/ML INJ IVP PRN (12:56)
[2017-05-24] MEDS: LORazepam 2 MG/ML INJ IVP PRN (13:45)
--- NOTE | 2017-05-24 13:54 | HOSPPROG ---
Hospitalist Progress Note Assessment/Plan: Patient is a 46-year-old female with a history of chronic pancreatitis. She has had a procedure to her pancreatic duct in the past. Over the last few weeks her pain has gotten worse. * abdominal pain her symptoms are similar to pancreatitis when she has had this in the past lipase is stable, complicated history MRCP does not show clear-cut etiology of her abdominal pain has elevated liver test cont NPO/EGG SMELLER * possible pancreatitis/acute on chronic Possibly secondary to obstruction right upper quadrant ultrasound reveals no evidence of biliary obstruction, enlargement of splenic cyst * underweight with a BMI 16.7 consider eating disorder *Migraine cont imitrex *chronic pain cont nasal ketamine pt not allowed to use EGG SMELLER and ketamine together agreeable *psych hx consider psych consult if not improving *hx of narcotic dep limit medication use narcs and benzos * diabetes glucose is stable at 128 this morning * episode of melena * plan. NPO, follow pain. Cont supportive care pt needs fu at [facility] Subjective: Tearful, confused. Still having pain. Eating crackers and ice chips. Mother at bedside. Objective: Vital Signs Temp Pulse Resp BP Pulse Ox 36.8 C 87 16 101/72 90 L 05/24/17 10:00 05/24/17 10:00 05/24/17 10:00 05/24/17 10:00 05/24/17 10:00 Laboratory Results 05/21/17 05:29 05/24/17 11:20 05/23/17 05/24/17 05/25/17 05:59 05:59 05:59 Intake Total 450 2064 Balance 450 2064 PT 15.0 SEC (12.0-15.0) 05/21/17 05:29 INR 1.18 (0.83-1.16) H 05/21/17 05:29 - Physical Exam Constitutional: chronically ill appearing, uncomfortable, cachectic Eyes: PERRL, anicteric sclera, EOMI Ears, Nose, Mouth, Throat: hearing normal, ears appear normal, dry mucous membranes Cardiovascular: regular rate and rhythym, No JVD, No edema Respiratory: no respiratory distress, no rales or rhonchi, reduced air movement Gastrointestinal: tenderness, No ascites, No guarding, No distension Skin: warm, normal color, No erythema Musculoskeletal: normal joint ROM, no joint effusions, generalized weakness Neurologic: AAOx3 Psychiatric: not encephalopathic, anxious, poor insight ICD10 Worksheet Patient Problems: Problems Problem Status Onset Abdominal pain Active Pancreatitis Active Bipolar 1 disorder Acute Abdominal pain Acute
[2017-05-24] MEDS: PANTOPRAZOLE SODIUM 40 MG in NS 100 ML IV SCH (20:26)
--- NOTE | 2017-05-24 22:04 | HOSPPROG ---
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 may resume home dose of ketamine may use iv Dilaudid 0.4mg ivp q4 h prn breakthrough pain consider starting oral Dilaudid tomorrow pt is agreeable with the above plan Objective: Vital Signs Temp Pulse Resp BP Pulse Ox 37.0 C 80 12 112/74 96 05/24/17 20:00 05/24/17 20:00 05/24/17 20:00 05/24/17 20:00 05/24/17 20:00 Laboratory Results 05/21/17 05:29 05/24/17 11:20 05/23/17 05/24/17 05/25/17 05:59 05:59 05:59 Intake Total 450 2064 Balance 450 2064 PT 15.0 SEC (12.0-15.0) 05/21/17 05:29 INR 1.18 (0.83-1.16) H 05/21/17 05:29 ICD10 Worksheet Patient Problems: Problems Problem Status Onset Abdominal pain Active Pancreatitis Active Bipolar 1 disorder Acute Abdominal pain Acute
[2017-05-24] MEDS: HYDROmorphONE/DILAUDID 1 MG/ML INJ IVP PRN (22:35)
[2017-05-25] MEDS: HYDROmorphONE/DILAUDID 1 MG/ML INJ IVP PRN ×2 (02:39→10:27)
[2017-05-25 09:40] LABS: % IMMATURE GRANULYOCYTES 0.2 % (0.0-1.1); ABSOLUTE IMMATURE GRANULOCYTES 0.01 10^3/uL (0.00-0.10); ADD DIFF? NO; ADD MORPH? NO; ADD SCAN? NO; ATYPICAL LYMPHOCYTE FLAG 20 (0-99); FRAGMENT RBC FLAG 0 (0-99); HEMATOCRIT 37.8 % (38.0-47.0); HEMOGLOBIN 12.4 g/dL (12.6-16.3); LEFT SHIFT FLG 0 (0-99); LIPEMIA HEMOLYSIS FLAG 80 (0-99); MEAN CELL HEMOGLOBIN CONCENTR. 32.8 g/dL (32.4-36.7); MEAN CELL VOLUME 91.5 fL (81.5-99.8); MEAN PLATELET VOLUME 9.5 fL (8.7-11.7); PLATELET CLUMPS FLAG 0 (0-99); PLATELET COUNT 385 10^3/uL (150-400); RED BLOOD CELL COUNT 4.13 10^6/uL (4.18-5.33)
[2017-05-25 09:57] LABS: ALANINE AMINOTRANSFERASE 86 IU/L (9-52); ALBUMIN 3.6 g/dL (3.5-5.0); ALKALINE PHOSPHATASE 94 IU/L (38-126); ANION GAP 11 mEq/L (8-16); ASPARTATE AMINOTRANSFERASE 24 IU/L (14-46); BILIRUBIN,TOTAL 0.7 mg/dL (0.1-1.4); CALCIUM 9.3 mg/dL (8.5-10.4); CARBON DIOXIDE 25 mEq/l (22-31); CHLORIDE 104 mEq/L (97-110); CREATININE 0.6 mg/dL (0.6-1.0); GLOMERULAR FILTRATION RATE > 60; GLUCOSE 133 mg/dL (70-100); POTASSIUM 3.8 mEq/L (3.5-5.2); SODIUM 140 mEq/L (134-144); TOTAL PROTEIN 6.2 g/dL (6.3-8.2)
--- NOTE | 2017-05-25 10:24 | SOAPPROG ---
SOAP Progress Note Assessment/Plan: Assessment: Patient with chronic abdominal pain with chronic pancreatitis, presumed ETOH related. LFT's improved. Previous pancreaticojejunostomy and hepaticojejunostomy. Chronic pancreatitis with chronic pain syndrome. Presumed acute on chronic pancreatitis. Plan: 1. Advance diet as tolerated 2. Chronic pain syndrome will need management with pain specialist or [facility]. 3. When taking PO would discharge home with follow up with Dr. Garrison. 4. Continue pancreatic enzyme supplement when taking PO 05/25/17 10:24 Subjective: CC: Abdominal pain Objective: Vital Signs Temp Pulse Resp BP Pulse Ox 36.6 C 82 14 115/69 97 05/25/17 08:00 05/25/17 08:00 05/25/17 08:00 05/25/17 08:00 05/25/17 08:00 Laboratory Results 05/25/17 09:33 05/25/17 09:33 05/24/17 05/25/17 05/26/17 05:59 05:59 05:59 Intake Total 2063 Balance 2063 PT 15.0 SEC (12.0-15.0) 05/21/17 05:29 INR 1.18 (0.83-1.16) H 05/21/17 05:29 Generic Name Dose Route Start Last Admin Trade Name Freq PRN Reason Stop Dose Admin Acetaminophen 650 mg 05/20/17 19:10 Tylenol PO 11/16/17 19:09 Q4HRS PRN Pain, Mild/Fever, Can Take PO Alprazolam 0.5 mg 05/21/17 06:29 05/24/17 03:01 Xanax PO 11/16/17 20:05 0.25 mg BID PRN Administration Anxiety Amphetamine/Dextroamphetamine 20 mg 05/21/17 09:00 05/24/17 16:35 Adderall PO 11/17/17 08:59 Not Given BID@0900,1500 TRUNG Enoxaparin Sodium 40 mg 05/21/17 09:00 05/24/17 09:07 Lovenox SC 11/17/17 08:59 40 mg DAILY TRUNG Administration Hydromorphone HCl 0.4 mg 05/24/17 22:01 05/25/17 02:39 Dilaudid IVP 06/03/17 22:00 0.4 mg Q4HRS PRN Administration Pain, Severe Unable to Take PO Dextrose/Sodium Chloride 1,000 mls @ 100 mls/hr 05/23/17 11:00 05/24/17 16:34 D5w 1/2 Ns IV 11/19/17 10:59 1,000 mls CONT TRUNG Administration Pantoprazole Sodium 40 mg/ 100 mls @ 200 mls/hr 05/24/17 21:00 05/24/17 20:26 Sodium Chloride IV 11/20/17 20:59 100 mls BID TRUNG Administration Lipase/Amylase/Pancrelipase/Proteas 1 - 3 cap 05/21/17 08:00 05/24/17 08:58 Creon 24 PO 11/17/17 07:59 Not Given TIDMEAL TRUNG Lorazepam 0.5 mg 05/24/17 10:23 05/24/17 13:45 Ativan Injection IVP 11/20/17 10:22 0.5 mg Q4HRS PRN Administration Anxiety, Unable to Take PO Miscellaneous Medication 3 sprays 05/24/17 22:16 05/25/17 05:57 Ketamine EACHNARE 11/20/17 22:15 3 sprays TID PRN Administration MODERATE PAIN Morphine Sulfate 1 mg 05/22/17 22:02 05/22/17 22:32 Morphine IVP 06/01/17 22:01 1 mg Q4HRS PRN Administration Pain, Severe Unable to Take PO Naloxone HCl 0 mg 05/22/17 22:49 Narcan IVP 11/18/17 22:48 PRN PRN Respiratory depression Protocol Ondansetron HCl 4 mg 05/20/17 19:10 05/21/17 20:25 Zofran IVP 11/16/17 19:09 4 mg Q4HRS PRN Administration Nausea/Vomiting, Can't Take PO Oxycodone HCl 5 - 10 mg 05/22/17 18:05 05/23/17 04:57 Oxycodone Ir PO 06/01/17 18:04 10 mg Q4HRS PRN Administration Pain, Severe Able to Take PO Promethazine HCl 6.25 - 12.5 mg 05/20/17 19:10 05/23/17 07:27 Phenergan IVP 11/16/17 19:09 6.25 mg Q6HRS PRN Administration Nausea/Vomiting, Use 2nd Discontinued Medications Generic Name Dose Route Start Last Admin Trade Name Freq PRN Reason Stop Dose Admin Alprazolam 0.5 mg 05/20/17 20:06 05/20/17 20:43 Xanax PO 11/16/17 20:05 0.5 mg HS PRN Administration Anxiety Diphenhydramine HCl 50 mg 05/22/17 01:38 Benadryl PO 11/18/17 01:37 HS PRN Sleep/Insomnia Gadobutrol Confirm 05/21/17 15:13 Gadavist 1 Mmol/Ml Administered 05/21/17 15:14 Dose 10 ml IVP .STK-MED ONE Hydromorphone HCl 0.2 - 0.4 mg 05/20/17 19:10 05/21/17 08:29 Dilaudid IVP 05/30/17 19:09 0.4 mg Q4HRS PRN Administration Pain, Severe Unable to Take PO Hydromorphone HCl 2 mg 05/21/17 05:39 05/21/17 05:58 Dilaudid PO 05/31/17 05:38 2 mg Q6H PRN Administration Pain, Severe Able to Take PO Hydromorphone HCl 0.4 mg 05/21/17 06:30 05/21/17 06:35 Dilaudid IVP 05/21/17 06:31 0.4 mg ONCE ONE Administration Hydromorphone HCl 0 mg 05/21/17 10:30 05/22/17 12:26 Dilaudid Asbestos Siding Mechanic IV 05/31/17 10:29 6 mg PRN PRN Administration Pain, Severe Unable to Take PO Protocol Hydromorphone HCl 0 mg 05/22/17 22:49 05/24/17 19:51 Dilaudid Asbestos Siding Mechanic IV 06/01/17 22:48 6 mg PRN PRN Administration Pain, Severe Unable to Take PO Protocol Hydromorphone HCl 0.2 mg 05/24/17 12:56 05/24/17 13:07 Dilaudid IVP 06/03/17 12:55 0.2 mg Q4HRS PRN Administration Pain, Severe Unable to Take PO Sodium Chloride 1,000 mls @ 0 mls/hr 05/20/17 17:57 05/20/17 18:34 Ns IV 05/20/17 17:58 1,000 mls EDNOW ONE Administration Protocol Wide Open Pantoprazole Sodium 40 mg/ 100 mls @ 200 mls/hr 05/20/17 17:57 05/20/17 18:34 Sodium Chloride IV 05/20/17 18:26 100 mls EDNOW ONE Administration Dextrose/Sodium Chloride 1,000 mls @ 125 mls/hr 05/20/17 19:15 05/22/17 15:34 D5w 1/2 Ns IV 11/16/17 19:14 1,000 mls CONT TRUNG Administration Miscellaneous Medication 3 sprays 05/20/17 20:06 Ketamine EACHNARE HS PRN DEPRESSION/PAIN Miscellaneous Medication 3 sprays 05/24/17 11:51 05/24/17 11:59 Ketamine EACHNARE 11/20/17 11:50 3 sprays TID PRN Administration MODERATE PAIN Naloxone HCl 0 mg 05/21/17 10:30 Narcan IVP 11/17/17 10:29 PRN PRN Respiratory depression Protocol Ondansetron HCl 4 mg 05/20/17 19:10 05/24/17 04:29 Zofran Odt PO 11/16/17 19:09 4 mg Q4HRS PRN Administration Nausea/Vomiting, Use 1st Pantoprazole Sodium 40 mg 05/20/17 21:00 05/24/17 09:07 Protonix PO 11/16/17 20:59 40 mg BID TRUNG Administration Sumatriptan Succinate 50 mg 05/23/17 00:07 05/23/17 00:14 Imitrex PO 05/23/17 00:08 50 mg ONCE ONE Administration Sumatriptan Succinate 25 mg 05/23/17 06:57 05/23/17 08:53 Imitrex PO 05/23/17 06:58 25 mg ONCE ONE Administration Sumatriptan Succinate 50 mg 05/23/17 10:51 Imitrex PO 11/19/17 10:50 BID PRN Headache, Migrane Physical Exam - Physical Exam General Appearance: alert, no apparent distress Respiratory: lungs clear, normal breath sounds Cardiac/Chest: regular rate, rhythm Abdomen: normal bowel sounds, soft Skin: normal color, warm/dry Neuro/Psych: no motor/sensory deficits, alert, oriented x 3 ICD10 Worksheet Patient Problems: Problems Problem Status Onset Abdominal pain Acute Abdominal pain Active Pancreatitis Active Bipolar 1 disorder Acute
[2017-05-25] MEDS: ENOXAPARIN 40 MG/0.4 ML SYR SC SCH (10:27)
[2017-05-25] MEDS: PANTOPRAZOLE SODIUM 40 MG in NS 100 ML IV SCH ×2 (10:29→21:01)
[2017-05-25] MEDS: ADDERALL 20 MG TAB PO SCH ×2 (11:02→15:44)
[2017-05-25] MEDS: LORazepam 2 MG/ML INJ IVP PRN (15:37)
--- NOTE | 2017-05-25 17:05 | ASMTCMCOM ---
CM Note CM Note Notes: Spoke w/RN, anticipate will dc home independent when medically stable. CM available for any changes. Date Signed: 05/22/2017 02:22 PM Electronically Signed By:Janet Aquino
--- NOTE | 2017-05-25 17:09 | ASMTCMCOM ---
CM Note CM Note Notes: LFT's improved. Diet is being advanced - when taking po can d/c home. Date Signed: 05/25/2017 04:09 PM Electronically Signed By:Victoria Vargas
--- NOTE | 2017-05-25 18:00 | HOSPPROG ---
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 Although patient has had prior procedures which have had transient improvement in her abdominal symptoms, I believe that her structural medical diagnoses and her functional somatic issues have become enmeshed, making them very difficult treat concomitantly, since the patient has poor insight into the possibility of a functional pain disorder, and identifies much more strongly with her belief in an underlying structural, medical cause of all of her problems. - on this presentation, her AST/ALT were elevated, making the possibility of acute on chronic pancreatitis a likely cause of her initial worsening of pain - that said, her MRCP did not demonstrate specific abnormalities to cause her ongoing pain, and her liver enzymes have downtrended to near normal, all the while with a normal lipase level - d/w Dr. Valladares, ongoing consultation appreciated, does not recommend further diagnostic w/u at this time - if further structural, medical work-up for her pain is desired, the patient can certainly pursue further care at or [place], but, since our belief is that the current issue is more functional in nature, such work-up is unlikely to yield a more unifying impression - consequently, since the patient's complaint of 7/10 pain during our encounter today does not seem to have a structural, medical cause, and it is likely functional (and I validated to her that it is in fact a very real symptom and degree of pain she is experiencing), the appropriate treatment is not to re- escalate opiate therapy, but rather to empower and encourage her to employ her successful coping mechanisms, as well as non-pharmacologic support (ice pack, or heat pad) and attempt to re-introduce her diet - I counseled her that restarting any diet after 1-2 weeks of no oral intake can naturally feel uncomfortable for the stomach and small bowel, in addition to stimulating her pancreas, and that pre-medicating with non-narcotic, anti- emetics (even ativan, if necessary) may be helpful - if she is able to drink palatable fluids, advance to clear liquids, then she can advance to low-fat solids, and she reports she is hungry and motivated to do so - if she begins vomiting tonight, tx w/ anti-emetics - if she begins to sense more abdominal pain, I would not recommend more opiate pain Rx, as those are not useful and are potentially harmful in functional abdominal pain situations; I would recommend encouraging calming techniques, heat or ice, etc. - I counseled the patient that, at this time, I would not recommend TPN or G- tube feedings, as we have not established that she physically cannot tolerate oral intake, and I suspect that either of those two modalities would only serve to further psychologically medicalize the patient and prevent her from building her confidence with PO intake - her mother was present for the entire encounter, and she was very encouraging to the patient, regarding a PO trial, repeating the LFTs/lipase tomorrow to see if they do in fact rise w/ PO intake, which might suggest that there is a concomitant structural blockage contributing to this pain - although the patient was distressed by this plan and had a difficult time processing that we are not discounting her pain, but rather offering a different perspective on its cause and appropriate management, she and her mother agreed to trial above # Mental Health. The patient reports "depression" as her mental health diagnosis , and during our encounter today there were many concerning, and also encouraging personality traits expressed - patient has high level of anxiety, with a forcible need to be heard, and escalates the intensity of conversation (between both myself and her mother) quickly - she is very detail oriented, dictating the pain medication doses and schedule with an unusual degree of authority, with a manipulative and overriding manner of speaking to her mother, her RN, and myself - she is also very capable of describing her previous successful coping mechanisms which have allowed her deal with abdominal symptoms she has experienced since her teenage years, again suggesting that the underlying issue is more related to mental health and functional medicine, as opposed to physical anomally (albeit some have certainly manifested) - if the patient would be amenable, I would recommend that her next pursuit in outpatient care be a mental health provider with a sound understanding of functional medicine - I would not recommend escalating her doses of ketamine here (which she reports she takes for depression), as the patient is demonstrating behavior and demands bill to psychologic dependency, and would recommend outpt reassessment as to whether this is a good choice for her # Underweight with a BMI 16.7. Suspect there may also be a body-image, mental health component, which would also benefit from outpatient therapy - get formal dietary consult # Reported migraine. OK to cont imitrex Diet. Adv to clears, then low fat PPx. High risk, lovenox 40 given limited mobility Code. Full Dispo. ADD 05/26, pending PO tolerance. Spent 70 minutes of total care time, direct, face to face at bedside with patient and mother, from 1:20-2:30 p.m., addressing the issues as outlined above. > 50% of the time was spent counseling regarding above, as well as coordinating care. Objective: Vital Signs Temp Pulse Resp BP Pulse Ox 37.4 C 74 16 144/94 H 92 05/25/17 12:16 05/25/17 12:16 05/25/17 12:16 05/25/17 12:16 05/25/17 12:16 Laboratory Results 05/25/17 09:33 05/25/17 09:33 05/24/17 05/25/17 05/26/17 05:59 05:59 05:59 Intake Total 2063 Balance 2063 PT 15.0 SEC (12.0-15.0) 05/21/17 05:29 INR 1.18 (0.83-1.16) H 05/21/17 05:29 ICD10 Worksheet Patient Problems: Problems Problem Status Onset Abdominal pain Acute Abdominal pain Active Pancreatitis Active Bipolar 1 disorder Acute
[2017-05-25] MEDS: D5W 1/2 NS 1,000 ML IV SCH (18:13)
[2017-05-25] MEDS ORDERED: CREON 24 CAP PO PRN (20:16)
[2017-05-25 20:45] VITALS: RESP 16; TEMP 98.1
[2017-05-25 23:36] VITALS: O2SAT 97
[2017-05-26] MEDS: LORazepam 2 MG/ML INJ IVP PRN (02:17)
[2017-05-26 05:08] LABS: % IMMATURE GRANULYOCYTES 0.3 % (0.0-1.1); ABSOLUTE IMMATURE GRANULOCYTES 0.02 10^3/uL (0.00-0.10); ADD DIFF? NO; ADD MORPH? NO; ADD SCAN? NO; ATYPICAL LYMPHOCYTE FLAG 10 (0-99); FRAGMENT RBC FLAG 0 (0-99); HEMATOCRIT 34.8 % (38.0-47.0); HEMOGLOBIN 11.5 g/dL (12.6-16.3); LEFT SHIFT FLG 0 (0-99); LIPEMIA HEMOLYSIS FLAG 80 (0-99); MEAN CELL HEMOGLOBIN 29.7 pg (27.9-34.1); MEAN CELL VOLUME 89.9 fL (81.5-99.8); MEAN PLATELET VOLUME 9.6 fL (8.7-11.7); PLATELET CLUMPS FLAG 0 (0-99); PLATELET COUNT 406 10^3/uL (150-400); RED BLOOD CELL COUNT 3.87 10^6/uL (4.18-5.33); RED CELL DISTRIBUTION WIDTH 11.9 % (11.5-15.2)
[2017-05-26 05:28] LABS: ALANINE AMINOTRANSFERASE 68 IU/L (9-52); ALBUMIN 3.4 g/dL (3.5-5.0); ALKALINE PHOSPHATASE 91 IU/L (38-126); ANION GAP 10 mEq/L (8-16); ASPARTATE AMINOTRANSFERASE 20 IU/L (14-46); BILIRUBIN,TOTAL 0.6 mg/dL (0.1-1.4); CALCIUM 9.7 mg/dL (8.5-10.4); CARBON DIOXIDE 25 mEq/l (22-31); CHLORIDE 105 mEq/L (97-110); CREATININE 0.6 mg/dL (0.6-1.0); GLOMERULAR FILTRATION RATE > 60; GLUCOSE 90 mg/dL (70-100); POTASSIUM 3.9 mEq/L (3.5-5.2); SODIUM 140 mEq/L (134-144); TOTAL PROTEIN 6.1 g/dL (6.3-8.2)
[2017-05-26 07:23] VITALS: BP 101/62; PULSE 69
[2017-05-26] MEDS: ENOXAPARIN 40 MG/0.4 ML SYR SC SCH (08:53)
[2017-05-26] MEDS: ADDERALL 20 MG TAB PO SCH (08:53)
[2017-05-26] MEDS: PANTOPRAZOLE SODIUM 40 MG in NS 100 ML IV SCH (08:53)
[2017-05-26] MEDS: ONDANSETRON 4 MG/2 ML VIAL IVP PRN (09:13)
--- NOTE | 2017-05-26 10:39 | GDS ---
[f rep st] DISCHARGE SUMMARY DISCHARGE DIAGNOSES: 1. 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 2. Acute on chronic abdominal pain. 3. Depression. 4. Underweight with body mass index of 16.7. 5. Migraines. 6. History of previous pancreaticojejunostomy and hepaticojejunostomy with chronic pancreatitis. 7. Transaminitis of unclear etiology. CONSULTANTS: GI armond barger [facility], Dr. Victoria. HOSPITAL COURSE: History of chronic pancreatitis with acute on chronic abdominal pain, thought to be due to functional abdominal pain syndrome: The patient was admitted to the hospital due to severe a bdominal pain. She was treated with a [employer] which did not really help. After many long discussions wi th the patient, it was decided to stop narcotics. After stopping narcotics, her abdominal pain seems to have improved. On day of discharge, she is tolerating a regular diet, and her pain seems to be g etting better. DIAGNOSTICS DONE THIS HOSPITAL STAY: MRCP done 05/21/2017: Refer to report. There were 2 echogenic lesions seen on ultrasound of the left hepatic lobe, which could represent occult hemangioma, asymme tric fatty displacement or other etiology. PHYSICAL EXAM: VITAL SIGNS: On day of discharge, blood pressure 101/62, pulse 69, respiratory rate 16, O2 saturation 97% on room air. GENERAL: Well-appearing, no acute distress. DISCHARGE MEDICATIONS: Please refer to discharge medication reconciliation in [facility] for details. DISCHARGE INSTRUCTIONS: The patient will be discharged from the hospital and she should follow up wi th Dr. Garrison. Per the MRCP results, she should have repeat abdominal ultrasound in 6 months to foll ow up the 2 echogenic lesions that were seen on ultrasound. She should follow up with Dr. Garrison as well as her primary care provider. I should note that her LFTs were elevated during this hospital st ay. The patient denied any alcohol use. On day of discharge, her AST is normalized and her ALT is o nly mildly elevated at 68. She should have further outpatient followup of this. /[id number]/MODL
== END 2017-05-26 11:25 | disposition home or self-care (01) | DRG 392 ==
LOC: F3E 19:40
PROVIDERS: ADMIT Internal Medicine; ATTEND Family Medicine
DX: K59.9 Functional intestinal disorder, unspecified (principal); R10.0 Acute abdomen; G89.29 Other chronic pain; K86.1 Other chronic pancreatitis; R74.0 Nonspecific elevation of levels of transaminase and lactic acid dehydrogenase [LDH]; F32.9 Major depressive disorder, single episode, unspecified; R94.5 Abnormal results of liver function studies; R63.6 Underweight; Z68.1 Body mass index [BMI] 19.9 or less, adult; D73.4 Cyst of spleen; K76.9 Liver disease, unspecified; G43.909 Migraine, unspecified, not intractable, without status migrainosus; E08.9 Diabetes mellitus due to underlying condition without complications; Z98.0 Intestinal bypass and anastomosis status
CPT/HCPCS: 96365; A9585; J1170; J1650; J2060; J2405; J2550